=== PATIENT | female | born 1985 | race Caucasian/White ===

== ENCOUNTER 2017-04-08 00:57 | Emergency (ER) | payer MEDICARE, OTHER ==
[~2017-04-08] VITALS: Ht 170.2 cm; Wt 125.0 kg
[~2017-04-08 00:57] MED LIST: PROZ20CA11 PO
[2017-04-08 01:06] VITALS: BP 136/83; PULSE 97; RESP 18; TEMP 99; O2SAT 97
[2017-04-08 01:29] VITALS: BP 136/83; PULSE 97; RESP 18; TEMP 99; O2SAT 96
[2017-04-08] MEDS ORDERED: BACT800T5 PO (01:29)
--- NOTE | 2017-04-08 01:32 | PD ---
HPI Chief Complaint: Lump, Cyst, Hernia Time Seen by Provider: 01:24 Travel History International Travel<30 days: No Contact w/Intl Traveler<30days: No Traveled to known affect area: No History of Present Illness HPI The patient is a 31-year-old female that noticed a lump behind her right ear for one month. It hurts slightly and is not going away. She does not have a primary care physician. She does have a history of depression and is on Prozac for this. She has Medicare because she is disabled because of her depression. She has no fever, ear pain, dental pain but did have a sore throat earlier. PFSH Past Medical History Bipolar Disorder: Yes Anxiety: Yes Depression: Yes Heart Rhythm Problems: Yes (HEART MURMUR) Diminished Hearing: No Musculoskeletal: Yes (LOWER BACK PAIN) Immunizations Current: Yes Seizures: Yes ( CHILD) : 3 Para: 2 Miscarriage: 1 Past Surgical History Gynecologic Surgery: Yes (CONE BIOPSY) Other Surgery: Yes (TUMOR REMOVED FROM RIGHT THIGH) Social History Alcohol Use: No Tobacco Use: No Substance Use: No Allergies-Medications (Allergen,Severity, Reaction): Coded Allergies: No Known Allergies (Verified , 06/01/16) Reported Meds & Prescriptions Reported Meds & Active Scripts Active Reported Prozac (Fluoxetine HCl) 20 Mg Cap 20 Mg PO DAILY Review of Systems Except as stated in HPI: all other systems reviewed are Neg Physical Exam Narrative GENERAL: Well-nourished, obese patient in no apparent distress. Her vital signs show pulse of 97 but are otherwise normal. SKIN: Focused skin assessment warm/dry. There is some extremely minimal erythema behind the right ear but no masses noted. There is a fullness in the area and perhaps this could be a tiny lymph node. She does have some intertriginous rash at the posterior ear crease, possibly from some seborrheic dermatitis. HEAD: Normocephalic. EYES: No scleral icterus. No injection or drainage. NECK: Supple, trachea midline. No JVD or lymphadenopathy along the anterior cervical chains. CARDIOVASCULAR: Regular rate and rhythm without murmurs, gallops, or rubs. RESPIRATORY: Breath sounds equal bilaterally. No accessory muscle use. GASTROINTESTINAL: Abdomen soft, non-tender, nondistended. MUSCULOSKELETAL: No cyanosis, or edema. BACK: Nontender without obvious deformity. No CVA tenderness. ENT: The tympanic membranes are clear and the throat is clear without erythema, exudate or abscess. Data Data Last Documented VS Vital Signs Date Time Temp Pulse Resp B/P (MAP) Pulse Ox O2 Delivery O2 Flow Rate FiO2 04/08/17 01:06 99.0 97 18 136/83 (100) 97 MDM Medical Decision Making Medical Screen Exam Complete: Yes Emergency Medical Condition: Yes Medical Record Reviewed: Yes Differential Diagnosis Seborrheic dermatitis, cellulitis, inflamed lymph node Narrative Course The patient's boyfriend started telling me stories about how emergency room doctors of missed things in the past. He was very angry and the patient also was angry. The patient appears to have a minimal cellulitis, possibly from seborrheic dermatitis. It was recommended that she follow-up with a primary care physician, she does have Medicare a and B and should be able to get a primary care physician. Diagnosis Primary Impression: Cellulitis Additional Impression: Seborrheic dermatitis Additional Instructions: As we discussed, it is important for you to get a primary care physician. For this problem the ideal specialist would be a vendor relationship manager. Med/Other Pt SpecificInfo: Prescription(s) given Scripts Sulfamethoxazole-Trimethoprim (Bactrim DS) 800-160 Mg Tab 1 TAB PO BID for Infection, #20 TAB 0 Refills Prov: Ruddy Romero MD 04/08/17 Disposition: DISCHARGE HOME Condition: Stable Ruddy Romero MD Apr 08, 2017 01:32
[2017-04-08] MEDS ORDERED: TRINTAB7 PO (01:38)
[2017-04-08] MEDS ORDERED: PROZ20CA11 PO (01:38)
[2017-04-08] MEDS ORDERED: BUPR150XL PO (01:38)
[2017-04-08] MEDS ORDERED: LAMO25 PO (01:38)
[2017-04-08] MEDS ORDERED: VALT1TAB PO (01:38)
[2017-04-08] MEDS ORDERED: SULFAMETHOXAZOLE-TRIMETHOPRIM DS 800-160 MG TAB PO ONE (01:45)
== END 2017-04-08 01:55 | disposition home or self-care (01) ==
LOC: PHED 00:57
DX: H60.11 Cellulitis of right external ear (principal); L21.9 Seborrheic dermatitis, unspecified
CPT/HCPCS: 99283

== ENCOUNTER 2017-07-18 16:08 | Emergency (ER) | payer MEDICARE, OTHER ==
[~2017-07-18] VITALS: Ht 170.2 cm; Wt 122.0 kg
[~2017-07-18 16:08] MED LIST changes: +BUPR150XL PO; +LAMO25 PO; +TRINTAB7 PO; +VALT1TAB PO
[2017-07-18 16:12] VITALS: BP 144/81; PULSE 88; RESP 16; TEMP 98.3; O2SAT 97
[2017-07-18] MEDS ORDERED: FLUO40CA PO (16:25)
[2017-07-18] MEDS ORDERED: BACT800T5 PO (16:29)
[2017-07-18] MEDS ORDERED: CEPH-460 PO (16:29)
--- NOTE | 2017-07-18 16:29 | PD ---
HPI Chief Complaint: Skin Problem Time Seen by Provider: 16:26 Travel History International Travel<30 days: No Contact w/Intl Traveler<30days: No Traveled to known affect area: No History of Present Illness HPI 31-year-old female presents to emergency for evaluation of a painful bump in the rocks a left upper extremity with surrounding erythema. Patient thought it was a pimple yesterday. She squeezed it and noticed increasing redness today. No fever or chills but states the area is tender and warm to touch. Denies any trauma. She has no other symptoms to report. PFSH Past Medical History Bipolar Disorder: Yes Anxiety: Yes Depression: Yes Heart Rhythm Problems: Yes (HEART MURMUR) Diminished Hearing: No Musculoskeletal: Yes (LOWER BACK PAIN) Immunizations Current: Yes Seizures: Yes ( CHILD) ?: Not LMP: LAST MONTH : 3 Para: 2 Miscarriage: 1 Past Surgical History Gynecologic Surgery: Yes (CONE BIOPSY) Other Surgery: Yes (TUMOR REMOVED FROM RIGHT THIGH) Social History Alcohol Use: No Tobacco Use: No Substance Use: No Allergies-Medications (Allergen,Severity, Reaction): Coded Allergies: diphenhydramine (Verified Allergy, Severe, Hypotension, 07/18/17) ziprasidone (Verified Allergy, Intermediate, Rash, 07/18/17) Reported Meds & Prescriptions Reported Meds & Active Scripts Active Keflex (Cephalexin) 500 Mg Capsule 500 Mg PO Q6H 5 Days Bactrim DS (Sulfamethoxazole-Trimethoprim) 800-160 Mg Tab 1 Tab PO BID Reported Fluoxetine (Fluoxetine HCl) 40 Mg Cap 80 Cap PO DAILY Review of Systems Except as stated in HPI: all other systems reviewed are Neg Physical Exam Narrative GENERAL: Well-nourished, well-developed female patient, ambulatory and in no acute distress SKIN: Focused skin assessment warm/dry. There is a subcentimeter erythematous papule on the medial aspect proximal left upper extremity. He does have a scabbed center. Surrounding this is 15 cm of erythema and warmth. No significant induration. No fluctuation. HEAD: Normocephalic. EYES: No scleral icterus. No injection or drainage. NECK: Supple, trachea midline. No JVD or lymphadenopathy. CARDIOVASCULAR: Regular rate and rhythm without murmurs, gallops, or rubs. RESPIRATORY: Breath sounds equal bilaterally. No accessory muscle use. GASTROINTESTINAL: Abdomen soft, non-tender, nondistended. MUSCULOSKELETAL: No cyanosis, or edema. BACK: Nontender without obvious deformity. No CVA tenderness. Data Data Last Documented VS Vital Signs Date Time Temp Pulse Resp B/P (MAP) Pulse Ox O2 Delivery O2 Flow Rate FiO2 07/18/17 16:12 98.3 88 16 144/81 (102) 97 Orders Orders Ed Discharge Order (07/18/17 16:26) MDM Medical Decision Making Medical Screen Exam Complete: Yes Emergency Medical Condition: Yes Medical Record Reviewed: Yes Differential Diagnosis Folliculitis versus cellulitis versus abscess versus insect bite Narrative Course 31-year-old female presents to emergency department for evaluation of a painful lesion surrounded by erythema on the proximal left upper extremity. Physical exam is consistent with a folliculitis and cellulitis. Patient is counseled on care. She'll be started on oral antibiotics. She agrees to return immediately with any acute worsening of symptoms. Diagnosis Primary Impression: Folliculitis Additional Impression: Cellulitis Qualified Codes: L03.114 - Cellulitis of left upper limb Referrals: Primary Care Physician Patient Instructions: Folliculitis (ED), General Instructions Additional Instructions: Warm compresses to the affected area Start antibiotic today and take it until it is complete Tylenol or ibuprofen as directed on the package needed for pain Return immediately to emergency department with any acute worsening symptoms Med/Other Pt SpecificInfo: Prescription(s) given Scripts Cephalexin (Keflex) 500 Mg Capsule 500 MG PO Q6H for Infection for 5 Days, #20 CAP 0 Refills Prov: Maritza Shah 07/18/17 Sulfamethoxazole-Trimethoprim (Bactrim DS) 800-160 Mg Tab 1 TAB PO BID for Infection, #20 TAB 0 Refills Prov: Maritza Shah 07/18/17 Disposition: 01 DISCHARGE HOME Condition: Stable Maritza Shah Jul 18, 2017 16:29
== END 2017-07-18 16:46 | disposition home or self-care (01) ==
LOC: PHEFT 16:08
DX: L73.9 Follicular disorder, unspecified (principal); L03.114 Cellulitis of left upper limb; F31.9 Bipolar disorder, unspecified; Z79.899 Other long term (current) drug therapy
CPT/HCPCS: 99284

== ENCOUNTER 2017-08-05 21:10 | Emergency (ER) | payer MEDICARE, OTHER ==
[~2017-08-05] VITALS: Ht 170.2 cm; Wt 123.2 kg
[~2017-08-05 21:10] MED LIST changes: +BACT800T5 PO; -BUPR150XL PO; +CEPH-460 PO; +FLUO40CA PO; -LAMO25 PO; -PROZ20CA11 PO; -TRINTAB7 PO; -VALT1TAB PO
[2017-08-05 21:11] VITALS: BP 141/84; PULSE 93; RESP 16; TEMP 99; O2SAT 98
[2017-08-05] MEDS ORDERED: BUPR150XL PO (21:40)
[2017-08-05] MEDS ORDERED: LAMI200T PO (21:40)
[2017-08-05] MEDS ORDERED: CLON1 PO (21:40)
[2017-08-05] MEDS ORDERED: ACETAMINOPHEN 325 MG TAB PO ONE (21:45)
--- NOTE | 2017-08-05 22:12 | PD ---
HPI Chief Complaint: Fall Time Seen by Provider: 21:33 Travel History International Travel<30 days: No Contact w/Intl Traveler<30days: No Traveled to known affect area: No History of Present Illness HPI Patient is a 31-year-old female who presents to emergency room after she fell yesterday night while exercising. Patient reports that around 6:30 PM last night, she was exercising, patient reports that she twisted her right ankle and twisted her body and fell on her left hip. Patient reports that she was able to get up and ambulate, patient reports pains to her low back as well as her left hip and her right ankle. Patient reports concern for possible fracture. Patient reports no trauma to the head or neck, patient with no loss of consciousness. Patient with no chest pain or shortness of breath, no other complaints at this time. PFSH Past Medical History Bipolar Disorder: Yes Anxiety: Yes Depression: Yes Heart Rhythm Problems: Yes (HEART MURMUR) Diminished Hearing: No Musculoskeletal: Yes (LOWER BACK PAIN) Immunizations Current: Yes Seizures: Yes ( CHILD) Influenza Vaccination: No ?: Unknown LMP: unsure : 3 Para: 2 Miscarriage: 1 Past Surgical History Gynecologic Surgery: Yes (CERVICAL CONE BIOPSY) Other Surgery: Yes (TUMOR REMOVED FROM RIGHT THIGH) Social History Alcohol Use: No Tobacco Use: No Substance Use: No Allergies-Medications (Allergen,Severity, Reaction): Coded Allergies: diphenhydramine (Verified Allergy, Severe, Hypotension, 07/18/17) ziprasidone (Verified Allergy, Intermediate, Rash, 07/18/17) Reported Meds & Prescriptions Reported Meds & Active Scripts Active Reported Klonopin (Clonazepam) 1 Mg Tab 1 Mg PO PRN Wellbutrin Xl 24 HR (Bupropion HCl) 150 Mg Tab 150 Mg PO DAILY Lamictal (Lamotrigine) 200 Mg Tab 200 Mg PO DAILY Fluoxetine (Fluoxetine HCl) 40 Mg Cap 80 Cap PO DAILY Review of Systems General / Constitutional: No: Fever Eyes: No: Visual changes HENT: No: Headaches Cardiovascular: No: Chest Pain or Discomfort Respiratory: No: Shortness of Breath Gastrointestinal: No: Abdominal Pain Genitourinary: No: Dysuria Musculoskeletal: Positive: Limited ROM, Pain Skin: No Rash Neurologic: No: Weakness Psychiatric: No: Depression Endocrine: No: Polydipsia Hematologic/Lymphatic: No: Easy Bruising Physical Exam Narrative GENERAL: Well-nourished, well-developed patient. SKIN: Focused skin assessment warm/dry. HEAD: Normocephalic. EYES: No scleral icterus. No injection or drainage. NECK: Supple, trachea midline. No JVD or lymphadenopathy. CARDIOVASCULAR: Regular rate and rhythm without murmurs, gallops, or rubs. RESPIRATORY: Breath sounds equal bilaterally. No accessory muscle use. GASTROINTESTINAL: Abdomen soft, non-tender, nondistended. MUSCULOSKELETAL: No cyanosis, or edema. Patient with left sided lumbar paraspinal tenderness, no midline tenderness to cervical/thoracic or lumbar spine, patient with good range of motion to left hip as well as a right hip. Patient with pain with range of motion to right ankle, there is no obvious open deformity, mild swelling with pain to the lateral malleolus. Pulses intact, neurovascular intact. Left lower extremity: Normal exam BACK: No obvious deformity. No CVA tenderness. Patient with left-sided lumbar paraspinal tenderness Data Data Last Documented VS Vital Signs Date Time Temp Pulse Resp B/P (MAP) Pulse Ox O2 Delivery O2 Flow Rate FiO2 08/05/17 21:11 99.0 93 16 141/84 (103) 98 Room Air Orders Orders Spine, Lumbar - Ltd (Ap & Lat) (08/05/17 ) Ankle, Complete ([id number]) (08/05/17 ) Hip, Uni(Ap&Lat) W Ap Pelvis (08/05/17 ) Acetaminophen (Tylenol) (08/05/17 21:45) MDM Medical Decision Making Medical Screen Exam Complete: Yes Emergency Medical Condition: Yes Medical Record Reviewed: Yes Interpretation(s) Vital Signs Date Time Temp Pulse Resp B/P (MAP) Pulse Ox O2 Delivery O2 Flow Rate FiO2 08/05/17 21:11 99.0 93 16 141/84 (103) 98 Room Air Differential Diagnosis Muscle sprain, ankle fracture vs sprain Narrative Course 31-year-old female who fell yesterday after exercising, presents to the emergency room with complaints of left hip pain, low back pain as well as right ankle pain. X-rays of the lumbar spine, left hip as well as pelvis and x-rays of the right ankle ordered. Last Impressions Lumbar Spine X-Ray 08/05/17 0000 Signed Impressions: Service Date/Time: July 21:58 - CONCLUSION: No evidence of compression deformity or spondylolisthesis. Denton Richardson MD Hip and Pelvis X-Ray 08/05/17 0000 Signed Impressions: Service Date/Time: July 21:55 - CONCLUSION: No evidence of recent bony injury. Denton Richardson MD Ankle X-Ray 08/05/17 0000 Signed Impressions: Service Date/Time: July 22:03 - CONCLUSION: Lateral soft tissue swelling. No fracture seen. Denton Richardson MD X-rays with no acute fractures. Patient will follow up with pcp and will return to ER as needed Diagnosis Primary Impression: Right ankle sprain Qualified Codes: S93.401A - Sprain of unspecified ligament of right ankle, initial encounter Additional Impression: Back pain Qualified Codes: M54.5 - Low back pain Patient Instructions: General Instructions Additional Instructions: Please follow up with your primary care doctor in 2-3 days Return to the ER if symptoms worsen or progress Return to the ER as needed Med/Other Pt SpecificInfo: Prescription(s) given Scripts Ibuprofen (Ibuprofen) 600 Mg Tab 600 MG PO Q6H Y for Pain/Inflammation, #40 TAB 0 Refills Prov: Roberta Fenton DO 08/05/17 Disposition: 01 DISCHARGE HOME Condition: Stable Roberta Fenton DO Aug 05, 2017 22:12
--- NOTE | 2017-08-05 22:13 | RADRPT ---
EXAM DATE/TIME: 08/05/2017 21:55 [facility] COMPARISON: No previous studies available for comparison. INDICATIONS : Left hip pain after fall yesterday. MEDICAL HISTORY : None. SURGICAL HISTORY : None. ENCOUNTER: Initial ACUITY: 1 day PAIN SCORE: 5/10 LOCATION: Left hip FINDINGS: Examination of the left hip was performed with AP Pelvis. The primary and secondary trabecular patte rn of the femoral neck is intact. The hip joint is of normal width without significant sclerosis or bony hypertrophy. The acetabulum is grossly intact. CONCLUSION: No evidence of recent bony injury. Denton Richardson MD on August 05, 2017 at 22:10 Board Certified Radiologist. This report was verified electronically.
--- NOTE | 2017-08-05 22:14 | RADRPT ---
EXAM DATE/TIME: 08/05/2017 21:58 [facility] COMPARISON: SPINE LUMBAR LTD (AP & LAT), February 10, 2015, 1:28. INDICATIONS : Lower back pain after fall yesterday. MEDICAL HISTORY : None. SURGICAL HISTORY : None. ENCOUNTER: Initial ACUITY: 2 days PAIN SCORE: 7/10 LOCATION: lumbar FINDINGS: Two view examination was performed. There are five non-rib bearing vertebral bodies. The vertebral bodies are in normal alignment without evidence of subluxation or scoliosis. The disc spaces are karl ntained. Minimal anterior paravertebral ossification at the L4-5 level, similar appearance to prior examination in 2014. The pedicles and transverse processes are intact. Bony mineralization is normal . No fracture is identified. CONCLUSION: No evidence of compression deformity or spondylolisthesis. Denton Richardson MD on August 05, 2017 at 22:11 Board Certified Radiologist. This report was verified electronically.
--- NOTE | 2017-08-05 22:15 | RADRPT ---
EXAM DATE/TIME: 08/05/2017 22:03 [facility] COMPARISON: No previous studies available for comparison. INDICATIONS : Right ankle pain after fall yesterday. Pain on medial and lateral side. MEDICAL HISTORY : None. SURGICAL HISTORY : None. ENCOUNTER: Initial ACUITY: 1 day PAIN SCORE: 4/10 LOCATION: Right ankle FINDINGS: Three-view examination demonstrates mild soft tissue swelling about the lateral aspect of the ankle. Osseous structures are in normal alignment and the ankle mortise is normal in configuration. No fra cture seen. No radiopaque foreign bodies. CONCLUSION: Lateral soft tissue swelling. No fracture seen. Denton Richardson MD on August 05, 2017 at 22:11 Board Certified Radiologist. This report was verified electronically.
[2017-08-05] MEDS ORDERED: IBUP-232 PO (22:53)
[2017-08-05] MEDS ORDERED: CYCL5TAB PO (23:05)
== END 2017-08-05 23:07 | disposition home or self-care (01) ==
LOC: NEPD 21:10
DX: S93.401A Sprain of unspecified ligament of right ankle, initial encounter (principal); M54.5 Low back pain; M25.552 Pain in left hip; F31.9 Bipolar disorder, unspecified; F41.9 Anxiety disorder, unspecified; R01.1 Cardiac murmur, unspecified; R56.9 Unspecified convulsions; X50.1XXA Overexertion from prolonged static or awkward postures, initial encounter; Y93.B9 Activity, other involving muscle strengthening exercises
CPT/HCPCS: 72100; 73502; 73610; 99284